=== PATIENT | male | born 1940 | race Caucasian/White ===

== ENCOUNTER 2018-06-10 14:54 | Observation (INO) | payer MEDICARE ==
[~2018-06-10] VITALS: Ht 172.7 cm; Wt 85.0 kg
[2018-06-10 15:21] LABS: Source, Urine Clean Catch
[2018-06-10 15:32] LABS: BASOPHILS ABSOLUTE AUTO 0.05 K/mm3 (0.00-0.23); BASOPHILS PERCENT AUTO 1 % (0-2); EOSINOPHILS ABSOLUTE AUTO 0.81 K/mm3 (0.00-0.68); EOSINOPHILS PERCENT AUTO 12 % (0-6); Hematocrit 45.5 % (37.0-53.0); Hemoglobin 14.8 g/dL (13.5-17.5); IMMATURE GRAN ABSOLUTE AUTO 0.01 K/mm3 (0.00-0.10); IMMATURE GRAN PERCENT AUTO 0 % (0-1); LYMPHOCYTES ABSOLUTE AUTO 1.23 K/mm3 (0.84-5.20); LYMPHOCYTES PERCENT AUTO 18 % (21-46); MONOCYTES ABSOLUTE AUTO 0.62 K/mm3 (0.16-1.47); MONOCYTES PERCENT AUTO 9 % (4-13); Mean Corpuscular HGB 29.8 pg (26.0-34.0); Mean Corpuscular HGB Conc 32.5 g/dL (31.5-36.5); Mean Corpuscular Volume 92 fL (80-100); Mean Platelet Volume 10.6 fL (9.1-12.4); NEUTROPHILS ABSOLUTE AUTO 4.29 K/mm3 (1.96-9.15); NEUTROPHILS PERCENT AUTO 61 % (41-73); Platelet Count 146 K/mm3 (150-400); RDW Coefficient Variation 13.2 % (11.7-14.2); RDW Standard Deviation 44.4 fL (35.1-46.3); Red Blood Cell Count 4.96 M/mm3 (4.30-5.90); White Blood Cell Count 7.01 K/mm3 (4.00-11.30)
[2018-06-10 15:37] LABS: Appearance, Urine Clear (Clear); Bilirubin, Urine Neg (Neg); Blood, Urine Neg (Neg); Color, Urine Yellow (P-Yellow); Glucose Qualitative, Urine Neg (Neg); Ketones, Urine Neg (Neg); Leukocyte Esterase, Urine Neg (Neg); Nitrite, Urine Neg (Neg); Protein, Urine Neg (Neg); Urobilinogen, Urine NORM (Normal)
[2018-06-10] MEDS ORDERED: ASPI81CH PO (15:44)
[2018-06-10] MEDS ORDERED: Vitamin B Comple1 EA PO (15:44)
[2018-06-10] MEDS ORDERED: VITAMIN D32000 UNI1 PO (15:45)
[2018-06-10] MEDS ORDERED: MULTI VITAMIN1 EACH PO (15:45)
[2018-06-10 15:47] LABS: Albumin, Blood 3.2 g/dL (3.4-5.0); Albumin/Globulin Ratio 1.1 (0.8-1.8); Bilirubin, Total 0.5 mg/dL (0.1-1.0); Bun/Creatinine Ratio 11.1 (12.0-20.0); Calcium, Blood 8.2 mg/dL (8.5-10.1); Creatinine, Blood 1.53 mg/dL (0.60-1.20); Globulin, Blood 2.8 g/dL (2.2-4.0); Potassium, Blood 3.7 mmol/L (3.5-5.5)
[2018-06-10] MEDS ORDERED: GLUC500 PO (22:01)
[2018-06-11 04:57] LABS: Hematocrit 42.1 % (37.0-53.0); Hemoglobin 13.5 g/dL (13.5-17.5); Mean Corpuscular HGB 30.2 pg (26.0-34.0); Mean Corpuscular HGB Conc 32.1 g/dL (31.5-36.5); Mean Corpuscular Volume 94 fL (80-100); Mean Platelet Volume 11.1 fL (9.1-12.4); Platelet Count 141 K/mm3 (150-400); RDW Coefficient Variation 13.2 % (11.7-14.2); RDW Standard Deviation 46.4 fL (35.1-46.3); Red Blood Cell Count 4.47 M/mm3 (4.30-5.90)
[2018-06-11 05:17] LABS: Albumin, Blood 2.5 g/dL (3.4-5.0); Anion Gap 9 mmol/L (6-16); Blood Urea Nitrogen 17 mg/dL (8-24); Bun/Creatinine Ratio 11.2 (12.0-20.0); CHOL/HDL RATIO 4.7; CO2, Blood 23 mmol/L (21-32); Calcium, Blood 7.7 mg/dL (8.5-10.1); Chloride, Blood 113 mmol/L (98-108); Cholesterol 147 mg/dL (50-200); Creatinine, Blood 1.52 mg/dL (0.60-1.20); Glomerular Filtration Rate 47 (60-); Glucose, Blood 107 mg/dL (70-99); HDL Cholesterol 31 mg/dL (>39); Low Density Lipoprotein Chol 63 mg/dL (0-110); Phosphorus, Blood 3.2 mg/dL (2.5-4.9); Potassium, Blood 3.4 mmol/L (3.5-5.5); Sodium, Blood 145 mmol/L (136-145); Triglycerides 265 mg/dL (30-160); Very Low Density Lipoprot Chol 53 mg/dL (6-32)
--- NOTE | 2018-06-11 06:47 | NUR ---
SHIFT SUMMARY PT WAS A NEW ADMIT DURING THE NIGHT, ARRIVING ON THE FLOOR AT 2100. HE WAS ADMITTED FOR A POSSIBLE CVA AFTER HE BEGAN HAVING NUMBNESS AND WEAKNESS IN HIS L ARM AND FACE. THE PT HAS REPORTED THAT THOSE SYMPTOMS HAVE IMPROVED OVER THEN NIGHT, WITH SOME RESIDUAL TINGLING IN HIS ARM. HE IS OTHERWISE NEUROLOGICALLY INTACT. HE WAS BRADYCARDIC DURING THE NIGHT, WITH A HEART RATE IN THE 50S THAT DROPPED TO 39 AT THE LOWEST PER THE GRIND OPERATOR. ALL OTHER VITALS STABLE. NO OTHER ACUTE CHANGES IN PT CONDITION NOTED. WILL CONTINUE TO MONITOR AND TREAT PER EMAR.
--- NOTE | 2018-06-11 09:52 | NUR ---
Echocardiogram using 9.0ml of agitated contrast performed.
--- NOTE | 2018-06-11 15:24 | NUR ---
[facility] CALLED RE:STAT HOLTER MONITOR ORDER CALLED HOSPITALIST TO CLARIFY. HOSPITALIST WANTS HOLTER MONITOR IN PLACE AT DISCHARGE, NOT WHILE ADMITTED. PT IS BEING MONITORED VIA TELEMETRY WHILE ADMITTED. CALLED BRI AT THE [facility] TO CLARIFY 'S ORDER FOR HER. SHE REQUESTS WE HAVE PT SHOWER BEFORE DISCHARGE IT IS NOT ALLOWABLE TO SHOWER WITH A HOLTER MONITOR IN PLACE.
--- NOTE | 2018-06-11 17:23 | NUR ---
SHIFT SUMMARY 77 YR OLD MALE. FULL CODE. ADMITTED FOR CVA. NEGATIVE HEAD & NECK CT SCAN. MINOR ISCHEMIA NOTED. PT STATES HE IS EXPERIENCING MINOR TINGLING IN LEFT ARM, BUT NOT NEAR BAD OF TINGLING BEFORE. HE IS A&O X4, INDEPENDENT IN ROOM. 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 HE RUNS BRADYCARDIC ON AVG 30'S-50 BPM. HE IS SALINE LOCKED ALL ORDERED FLUIDS HAVE BEEN ADMINISTERED. HE LIVES AT HOME WITH HIS AND WILL DISCHARGE THERE. PLAN IS TO DC TOMORROW. HOSPITALIST NOTES A POSSIBLE SHUNT OR IRREGULARITY HE WANTS TO OBSERVE FOR ONE MORE DAY. PLAN IS FOR THE [facility]ART [facility] TO PLACE A HOLTER MONITOR FOR THIS PT UPON DISCHARGE. PT MUST SHOWER BEFORE THIS MONITOR IS PLACED HE CANNOT SHOWER FOLLOWING HOLTER MONITOR PLACEMENT. PT DENIES DISCOMFORT OR PAIN.
--- NOTE | 2018-06-12 04:27 | NUR ---
Shift summary: No issues overnight. No c/o discomfort. Appears to have slept well. Left arm tingling only residual left from CVA. Pt alert, oriented and in good spirits.
[2018-06-12] MEDS ORDERED: CLOP75 PO (15:02)
[2018-06-12] MEDS ORDERED: ATOR40TA PO (15:02)
[2018-06-12] MEDS ORDERED: NIFE30ER PO (15:03)
--- NOTE | 2018-06-12 16:32 | NUR ---
DISCHARGE DISCHARGE MEDICATIONS AND INSTRUCTIONS EXPLAINED TO PATIENT. PATIENT STATED UNDERSTANDING. HOLTER MONITOR PLACED AND EDUCATION GIVEN BY [facility] RN. IV REMOVED WITHOUT DIFFICULTY. BELONGINGS WITH PATIENT. PATIENT TRANSPORTED TO PRIVATE VEHICLE VIA WHEELCHAIR.
== END 2018-06-12 15:22 | disposition home or self-care (01) ==
LOC: ER 14:54 → MEDS 14:55 → ENPENDDIS 06-12 12:00 → MEDS 06-12 15:22
PROVIDERS: Emergency Medicine; Nurse Practitioner Acute Care; ADMIT Internal Medicine
DX: I63.9 Cerebral infarction, unspecified (principal); G45.9 Transient cerebral ischemic attack, unspecified; I12.9 Hypertensive chronic kidney disease with stage 1 through stage 4 chronic kidney disease, or unspecified chronic kidney disease; N18.3 Chronic kidney disease, stage 3 (moderate); D69.6 Thrombocytopenia, unspecified; Z79.82 Long term (current) use of aspirin
CPT/HCPCS: 36415; 70450; 70496; 70498; 80053; 80061; 80069; 81003; 82607; 83036; 85025; 85027; 93005; 93010; 93225; 93226; 93306; 93970; 96360-59; 96361; 99285-25; J1650; J7030; Q9967

== ENCOUNTER → 2019-03-18 | Outpatient (CLI) | payer MEDICARE ==
[~2019-03-18] MED LIST: ASPI81CH PO; ATOR40TA PO; CLOP75 PO; GLUC500 PO; MULTI VITAMIN1 EACH PO; NIFE30ER PO; VITAMIN D32000 UNI1 PO; Vitamin B Comple1 EA PO
== END | disposition home or self-care (01) ==
LOC: LAB SHORT 18:12 → LAB 18:12
DX: R31.9 Hematuria, unspecified (principal)
CPT/HCPCS: 87077; 87086; 87186